=== PATIENT | female | born 2000 | race Two or more races ===

== ENCOUNTER 2020-04-17 18:16 | Emergency (ER) | payer OTHER ==
[~2020-04-17] VITALS: Ht 152.4 cm; Wt 88.5 kg
[2020-04-17] MEDS ORDERED: IRON325 MG (18:40)
== END 2020-04-17 23:51 | disposition home or self-care (01) ==
LOC: ER 18:16
DX: N93.8 Other specified abnormal uterine and vaginal bleeding (principal); D64.89 Other specified anemias